=== PATIENT | male | born 1985 | race Caucasian/White ===

== ENCOUNTER 2019-02-22 07:38 | Emergency (ER) | payer OTHER ==
[~2019-02-22] VITALS: Ht 185.4 cm; Wt 110.2 kg
[~2019-02-22 07:38] MED LIST: BACTRIM DS TAB1 EACH PO; CIPRO500 MG PO; FLONASE 0.05%50 MCG NASAL; HYDROCODONE-APA1 TA1 PO; IBUPROFEN 200200 M1 PO; MEDROLDOSEPACK PO; ZPAK PO
[2019-02-22] MEDS ORDERED: SUPER THERAVIT1 EACH PO (07:53)
[2019-02-22] MEDS ORDERED: ZANAFLEX4 M1 PO (07:54)
[2019-02-22] MEDS ORDERED: MORPHINE SULFAT15 M3 PO (07:54)
[2019-02-22] MEDS ORDERED: SERTRALINE HCL100 MG PO (07:57)
[2019-02-22 08:25] LABS: ABSOLUTE BASOPHILS 0.1 thou/uL (0.0-0.2); ABSOLUTE EOSINOPHILS 0.1 thou/uL (0.0-0.7); ABSOLUTE LYMPHOCYTES 1.8 thou/uL (0.8-5.3); ABSOLUTE MONOCYTES 0.5 thou/uL (0.0-1.2); ABSOLUTE NEUTROPHILS 3.8 thou/uL (1.6-8.1); BASOPHILS 0.9 %; EOSINOPHILS 1.8 %; HEMATOCRIT 42.1 % (42.0-52.0); HEMOGLOBIN 14.8 gm/dL (14.0-18.0); LYMPHOCYTES 28.6 %; MCH 30.7 pg (26.0-34.0); MCHC 35.2 g/dL (28.0-37.0); MCV 87.3 fL (80.0-100.0); MONOCYTES 7.6 %; MPV 7.7 fl. (7.2-11.1); NUCLEATED RBCS 0 /100WBC; PLATELET COUNT* 226 thou/uL (150-400); POLYS 61.1 %; RBC 4.82 mil/uL (4.50-6.00); RDW-CV 13.2 % (10.5-14.5); WBC 6.3 thou/uL (4.0-11.0)
[2019-02-22 09:13] LABS: CALCIUM 9.7 mg/dL (8.5-10.1); CREATININE 0.9 mg/dL (0.6-1.3); POTASSIUM 4.1 mmol/L (3.5-5.1)
[2019-02-22 09:26] LABS: ALBUMIN 3.9 g/dL (3.4-5.0); MAGNESIUM 1.9 mg/dL (1.8-2.4); TOTAL BILIRUBIN 0.4 mg/dL (<0.1-1.0); TOTAL PROTEIN 7.3 g/dL (6.4-8.2)
--- NOTE | 2019-02-22 10:33 | EKG ---
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
[2019-02-22] MEDS ORDERED: DOXYCYCLINE 10100 M2 PO (10:59)
[2019-02-22 11:23] VITALS: BP 116/86
== END 2019-02-22 11:23 | disposition home or self-care (01) ==
LOC: M.ERS 07:38
PROVIDERS: Emergency Medicine Emergency Medical Services
DX: J18.9 Pneumonia, unspecified organism (principal); Z90.49 Acquired absence of other specified parts of digestive tract; Z98.890 Other specified postprocedural states; Z88.6 Allergy status to analgesic agent; Z88.5 Allergy status to narcotic agent; Z88.1 Allergy status to other antibiotic agents

== ENCOUNTER 2019-03-21 17:51 | Emergency (ER) | payer OTHER ==
[~2019-03-21] VITALS: Ht 185.4 cm; Wt 106.1 kg
[~2019-03-21 17:51] MED LIST changes: +DOXYCYCLINE 10100 M2 PO; +MORPHINE SULFAT15 M3 PO; +SERTRALINE HCL100 MG PO; +SUPER THERAVIT1 EACH PO; +ZANAFLEX4 M1 PO
[2019-03-21] MEDS ORDERED: XARELTO1 EACH PO (18:14)
[2019-03-21 21:27] VITALS: BP 124/87
== END 2019-03-21 21:29 | disposition home or self-care (01) ==
LOC: M.ERS 17:51
DX: S09.8XXA Other specified injuries of head, initial encounter (principal); M25.512 Pain in left shoulder; Z88.1 Allergy status to other antibiotic agents; Z88.5 Allergy status to narcotic agent; Z88.6 Allergy status to analgesic agent; Z90.49 Acquired absence of other specified parts of digestive tract; V89.2XXA Person injured in unspecified motor-vehicle accident, traffic, initial encounter; Y93.89 Activity, other specified; Y92.89 Other specified places as the place of occurrence of the external cause; Y99.8 Other external cause status

== ENCOUNTER 2019-09-09 08:47 | Emergency (ER) | payer OTHER ==
[~2019-09-09] VITALS: Ht 185.4 cm; Wt 109.3 kg
[~2019-09-09 08:47] MED LIST changes: +XARELTO1 EACH PO
[2019-09-09] MEDS ORDERED: ADHD MED (08:56)
[2019-09-09] MEDS ORDERED: SLEEPING MED (08:56)
[2019-09-09] MEDS ORDERED: CELEXA 10 MG TA10 M1 PO (08:56)
[2019-09-09 09:28] LABS: ABSOLUTE EOSINOPHILS 0.1 thou/uL (0.0-0.7); ABSOLUTE LYMPHOCYTES 1.3 thou/uL (0.8-5.3); ABSOLUTE MONOCYTES 0.4 thou/uL (0.0-1.2); ABSOLUTE NEUTROPHILS 3.6 thou/uL (1.6-8.1); BASOPHILS 0.7 %; EOSINOPHILS 1.7 %; HEMOGLOBIN 15.3 gm/dL (14.0-18.0); LYMPHOCYTES 23.3 %; MCHC 35.5 g/dL (28.0-37.0); MCV 87.3 fL (80.0-100.0); MONOCYTES 8.1 %; NUCLEATED RBCS 0 /100WBC; PLATELET COUNT* 186 thou/uL (150-400); POLYS 66.2 %; RBC 4.93 mil/uL (4.50-6.00); WBC 5.5 thou/uL (4.0-11.0)
[2019-09-09 09:42] LABS: CALCIUM 8.9 mg/dL (8.5-10.1); POTASSIUM 4.3 mmol/L (3.5-5.1)
[2019-09-09 09:46] LABS: ALBUMIN 4.4 g/dL (3.4-5.0); TOTAL BILIRUBIN 0.4 mg/dL (<0.1-1.0); TOTAL PROTEIN 7.7 g/dL (6.4-8.2)
[2019-09-09 12:04] LABS: URINE BILIRUBIN NEGATIVE (Negative); URINE BLOOD NEGATIVE (Negative); URINE CLARITY CLEAR; URINE COLOR YELLOW; URINE GLUCOSE-RANDOM NEGATIVE (Negative); URINE KETONES NEGATIVE (Negative); URINE LEUKOCYTES-REFLEX NEGATIVE (Negative); URINE NITRITE-REFLEX NEGATIVE (Negative); URINE PROTEIN NEGATIVE (Negative); URINE SPECIFIC GRAVITY <= 1.005 (1.005-1.030); URINE UROBILINOGEN 0.2 E.U./dl (0.2-1.0)
[2019-09-09] MEDS ORDERED: PROMS25 WY RECTAL (12:30)
[2019-09-09 13:05] VITALS: BP 122/80
--- NOTE | 2019-09-09 15:37 | EKG ---
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
== END 2019-09-09 13:06 | disposition home or self-care (01) ==
LOC: M.ERS 08:47
PROVIDERS: Emergency Medicine
DX: R11.2 Nausea with vomiting, unspecified (principal); R10.84 Generalized abdominal pain; Z88.6 Allergy status to analgesic agent; Z88.1 Allergy status to other antibiotic agents; Z88.5 Allergy status to narcotic agent; Z90.49 Acquired absence of other specified parts of digestive tract

== ENCOUNTER 2019-10-21 16:26 | Emergency (ER) | payer OTHER ==
[~2019-10-21] VITALS: Ht 185.4 cm; Wt 99.8 kg
[~2019-10-21 16:26] MED LIST changes: +ADHD MED; +CELEXA 10 MG TA10 M1 PO; +PROMS25 WY RECTAL; +SLEEPING MED
[2019-10-21] MEDS ORDERED: TRAMADOL 50 MG50 MG PO (17:21)
[2019-10-21 17:32] VITALS: BP 132/70
== END 2019-10-21 17:34 | disposition home or self-care (01) ==
LOC: M.ERS 16:26
DX: S43.492A Other sprain of left shoulder joint, initial encounter (principal); Z90.49 Acquired absence of other specified parts of digestive tract; Z88.1 Allergy status to other antibiotic agents; Z88.6 Allergy status to analgesic agent; X50.1XXA Overexertion from prolonged static or awkward postures, initial encounter; Y93.89 Activity, other specified; Y92.89 Other specified places as the place of occurrence of the external cause; Y99.8 Other external cause status

== ENCOUNTER 2020-06-03 18:29 | Emergency (ER) | payer OTHER ==
[~2020-06-03] VITALS: Ht 185.4 cm; Wt 113.4 kg
[~2020-06-03 18:29] MED LIST changes: +TRAMADOL 50 MG50 MG PO
[2020-06-03] MEDS ORDERED: PROZAC40 MG PO (18:48)
[2020-06-03 19:02] LABS: ABSOLUTE EOSINOPHILS 0.1 thou/uL (0.0-0.7); ABSOLUTE LYMPHOCYTES 2.1 thou/uL (0.8-5.3); ABSOLUTE MONOCYTES 0.6 thou/uL (0.0-1.2); BASOPHILS 0.7 %; EOSINOPHILS 1.5 %; HEMATOCRIT 44.7 % (42.0-52.0); HEMOGLOBIN 15.6 gm/dL (14.0-18.0); LYMPHOCYTES 30.6 %; MCH 30.6 pg (26.0-34.0); MCV 87.4 fL (80.0-100.0); MONOCYTES 8.6 %; MPV 8.3 fl. (7.2-11.1); NUCLEATED RBCS 0 /100WBC; PLATELET COUNT* 192 thou/uL (150-400); POLYS 58.6 %; RBC 5.12 mil/uL (4.50-6.00); RDW-CV 14.1 % (10.5-14.5); WBC 6.9 thou/uL (4.0-11.0)
[2020-06-03] MEDS ORDERED: VALTREX1000 MG PO (19:05)
[2020-06-03] MEDS ORDERED: PREDNISONE 20 M20 M1 PO (19:05)
[2020-06-03 19:10] LABS: CALCIUM 9.8 mg/dL (8.5-10.1); POTASSIUM 3.9 mmol/L (3.5-5.1)
[2020-06-03 19:14] LABS: ALBUMIN 4.3 g/dL (3.4-5.0); TOTAL BILIRUBIN 0.4 mg/dL (<0.1-1.0); TOTAL PROTEIN 7.8 g/dL (6.4-8.2)
[2020-06-03 19:35] VITALS: BP 126/90
== END 2020-06-03 19:35 | disposition home or self-care (01) ==
LOC: M.ERS 18:29
PROVIDERS: Family Medicine
DX: B00.89 Other herpesviral infection (principal); Z90.49 Acquired absence of other specified parts of digestive tract; Z88.6 Allergy status to analgesic agent; Z88.1 Allergy status to other antibiotic agents; Z88.5 Allergy status to narcotic agent; Z88.8 Allergy status to other drugs, medicaments and biological substances

== ENCOUNTER 2020-10-05 16:25 | Emergency (ER) | payer OTHER ==
[~2020-10-05] VITALS: Ht 185.4 cm; Wt 113.4 kg
[~2020-10-05 16:25] MED LIST changes: +PREDNISONE 20 M20 M1 PO; +PROZAC40 MG PO; +VALTREX1000 MG PO
[2020-10-05 16:42] VITALS: BP 134/91
== END 2020-10-05 17:58 | disposition home or self-care (01) ==
LOC: M.ERS 16:25
DX: S61.211A Laceration without foreign body of left index finger without damage to nail, initial encounter (principal); Z90.49 Acquired absence of other specified parts of digestive tract; W25.XXXA Contact with sharp glass, initial encounter; Y93.89 Activity, other specified; Y92.89 Other specified places as the place of occurrence of the external cause; Y99.8 Other external cause status; Z88.1 Allergy status to other antibiotic agents; Z88.5 Allergy status to narcotic agent; Z88.8 Allergy status to other drugs, medicaments and biological substances

== ENCOUNTER 2020-10-11 19:10 | Emergency (ER) | payer OTHER ==
[~2020-10-11] VITALS: Ht 185.4 cm; Wt 113.4 kg
[2020-10-11 19:43] VITALS: BP 133/83
== END 2020-10-11 19:45 | disposition home or self-care (01) ==
LOC: M.ERS 19:10
DX: S61.211D Laceration without foreign body of left index finger without damage to nail, subsequent encounter (principal); Z90.49 Acquired absence of other specified parts of digestive tract; Z88.6 Allergy status to analgesic agent; Z88.1 Allergy status to other antibiotic agents; Z88.5 Allergy status to narcotic agent; X58.XXXD Exposure to other specified factors, subsequent encounter

== ENCOUNTER 2020-12-16 20:16 | Emergency (ER) | payer OTHER, BC ==
[~2020-12-16] VITALS: Ht 185.4 cm; Wt 113.4 kg
[2020-12-16] MEDS ORDERED: XANAX2 MG PO (21:21)
[2020-12-17] MEDS ORDERED: MEDROLDOSEPACK PO (00:04)
[2020-12-17] MEDS ORDERED: ALLOPURINOL 10100 M2 PO (00:04)
[2020-12-17 00:38] VITALS: BP 121/84
== END 2020-12-17 00:39 | disposition home or self-care (01) ==
LOC: M.ERS 20:16
DX: M10.9 Gout, unspecified (principal); Z88.6 Allergy status to analgesic agent; Z88.1 Allergy status to other antibiotic agents; Z88.5 Allergy status to narcotic agent; Z88.8 Allergy status to other drugs, medicaments and biological substances